=== PATIENT | male | born 1940 | race Caucasian/White ===

== ENCOUNTER 2018-11-21 07:26 | Day surgery (SDC) | payer OTHER, BC ==
[2018-11-14 12:34] VITALS: BMI 33.2
[2018-11-21] MEDS ORDERED: PROPOFOL 20 ML ONE ×2 (08:12)
[2018-11-21] MEDS ORDERED: LIDOCAINE HCL/PF 2% SDV 5ML VIAL ONE (08:27)
[2018-11-21 09:14] VITALS: TEMP 97.7
[2018-11-21 09:51] VITALS: BP 113/76; PULSE 65
--- NOTE | 2018-11-24 15:48 | PATH ---
Surgical Pathology Report Patient Name: SAMEER RIOS [facility]. Rec. #: [id number] /Age/Gender: 1940 (Age: 78) / M Account: [id number] Location: [facility] Taken: 11/21/2018 Received: 11/21/2018 Reported: 11/24/2018 Physicians: Emmanuel Vickers M.D. Specimen(s) Received A: POLYP CECUM ADJACENT TO APPENDIX B: POLYP RIGHT COLON C: POLYP SPLENIC FLEXURE D: POLYP PROXIMAL LEFT COLON E: POLYP SIGMOID Clinical History History of polyps Postoperative diagnosis: Polyps, diverticulosis Final Diagnosis A. CECUM, ADJACENT TO APPENDIX, POLYP, BIOPSY: TUBULAR ADENOMA. B. RIGHT COLON, POLYP, BIOPSY: TUBULAR ADENOMA. C. SPLENIC FLEXURE, POLYP, BIOPSY: TUBULAR ADENOMA. D. PROXIMAL LEFT COLON, POLYP, BIOPSY: TUBULAR ADENOMA. E. SIGMOID, POLYP, BIOPSY: TUBULAR ADENOMA. Electronically Signed Breanna Wayne M.D. Gross Description A. Received in formalin, labeled "polyps cecum adjacent to appendix" are 2 elizabeth, irregular portions of soft tissue averaging 0.3 cm. in greatest dimension. The specimens are submitted in toto in one cassette. B. Received in formalin, labeled "polyp right colon" is a elizabeth, irregular portion of soft tissue measuring 0.4 cm. in greatest dimension. The specimen is submitted in toto in one cassette. C. Received in formalin, labeled "polyp splenic flexure" are 2 elizabeth, irregular portions of soft tissue measuring 0.2 and 0.3 cm. in greatest dimension. The specimens are submitted in toto in one cassette. D. Received in formalin, labeled "polyp proximal left colon" is a elizabeth, irregular portion of soft tissue measuring 0.9 cm. in greatest dimension. The specimen is submitted in toto in one cassette. E. Received in formalin, labeled "polyp sigmoid" is a elizaebth, irregular portion of soft tissue measuring 0.7 cm. in greatest dimension. The specimen is submitted in toto in one cassette. 11/22/201811/22/2018
== END 2018-11-21 09:45 | disposition home or self-care (01) ==
LOC: FASU-ENDO 07:26
PROVIDERS: ATTEND Internal Medicine Gastroenterology
PROC: 0DBN8ZX Excision of Sigmoid Colon, Via Natural or Artificial Opening Endoscopic, Diagnostic (ICD-10-PCS; 2018-11-21)
PROC: 0DBH8ZX Excision of Cecum, Via Natural or Artificial Opening Endoscopic, Diagnostic (ICD-10-PCS; 2018-11-21)
PROC: 0DBL8ZX Excision of Transverse Colon, Via Natural or Artificial Opening Endoscopic, Diagnostic (ICD-10-PCS; 2018-11-21)
PROC: 0DBK8ZX Excision of Ascending Colon, Via Natural or Artificial Opening Endoscopic, Diagnostic (ICD-10-PCS; principal; 2018-11-21 08:35)
DX: Z86.010 Personal history of colon polyps (principal); D12.0 Benign neoplasm of cecum; D12.2 Benign neoplasm of ascending colon; D12.3 Benign neoplasm of transverse colon; D12.4 Benign neoplasm of descending colon; D12.5 Benign neoplasm of sigmoid colon; K57.30 Diverticulosis of large intestine without perforation or abscess without bleeding
CPT/HCPCS: 88305-TC

== ENCOUNTER 2022-05-18 08:22 | Day surgery (SDC) | payer OTHER, BC ==
[2022-05-13 10:33] VITALS: BMI 35.4
[2022-05-18 08:43] VITALS: TEMP 98
[2022-05-18] MEDS ORDERED: PROPOFOL 80 ML ONE (09:34)
[2022-05-18] MEDS ORDERED: LIDOCAINE HCL/PF 2% SDV 5ML VIAL ONE (09:34)
[2022-05-18 10:13] VITALS: RESP 18
[2022-05-18 10:24] VITALS: BP 111/66; PULSE 69
== END 2022-05-18 10:25 | disposition home or self-care (01) ==
LOC: FASU-ENDO 08:22
PROVIDERS: ATTEND Internal Medicine Gastroenterology
PROC: 0DBL8ZX Excision of Transverse Colon, Via Natural or Artificial Opening Endoscopic, Diagnostic (ICD-10-PCS; principal; 2022-05-18 09:31)
DX: Z12.11 Encounter for screening for malignant neoplasm of colon (principal); Z86.010 Personal history of colon polyps; D12.3 Benign neoplasm of transverse colon; K57.30 Diverticulosis of large intestine without perforation or abscess without bleeding
CPT/HCPCS: 88305-TC